=== PATIENT | male | born 1990 | race Caucasian/White ===

== ENCOUNTER 2019-08-16 12:48 | Inpatient (IN) | payer OTHER ==
[~2019-08-16] VITALS: Ht 182.9 cm; Wt 89.4 kg
[2019-08-16 12:52] VITALS: BP 161/106
[2019-08-16 13:14] LABS: ABSOLUTE BASOPHILS 0.1 thou/uL (0.0-0.2); ABSOLUTE EOSINOPHILS 0.1 thou/uL (0.0-0.7); ABSOLUTE MONOCYTES 0.8 thou/uL (0.0-1.2); ABSOLUTE NEUTROPHILS 12.9 thou/uL (1.6-8.1); BASOPHILS 0.8 %; EOSINOPHILS 0.4 %; HEMATOCRIT 44.4 % (42.0-52.0); HEMOGLOBIN 15.7 gm/dL (14.0-18.0); LYMPHOCYTES 17.6 %; MCH 31.9 pg (26.0-34.0); MCHC 35.3 g/dL (28.0-37.0); MCV 90.2 fL (80.0-100.0); MPV 7.5 fl. (7.2-11.1); NUCLEATED RBCS 0 /100WBC; PLATELET COUNT* 462 thou/uL (150-400); POLYS 76.2 %; RBC 4.93 mil/uL (4.50-6.00); RDW-CV 13.2 % (10.5-14.5); WBC 16.9 thou/uL (4.0-11.0)
[2019-08-16 13:22] LABS: CALCIUM 8.9 mg/dL (8.5-10.1); CREATININE 1.4 mg/dL (0.6-1.3)
[2019-08-16 13:34] LABS: ALBUMIN 3.6 g/dL (3.4-5.0); TOTAL BILIRUBIN 0.4 mg/dL (<0.1-1.0); TOTAL PROTEIN 7.5 g/dL (6.4-8.2)
--- NOTE | 2019-08-16 15:08 | NUR ---
MOTHER CALLED FACILITY WANTING TO KNOW STATUS OF HER SON, RETURNED PHONE CALL AND RECEIVED A VOICEMAIL, LEAVING MESSAGE TO CALL FACILITY
--- NOTE | 2019-08-16 15:15 | NUR ---
MOM CALLED AND UPDATED THE MOTHER THE STATUS OF HER SON, SHE VERBALIZED UNDERSTANDING
[2019-08-16 18:32] VITALS: BP 142/80
[2019-08-16 19:30] VITALS: BP 134/51
--- NOTE | 2019-08-16 20:17 | NUR ---
PATIENT ARRIVED FROM THE ED AT 1830. HE WAS SETTLED, IV FLUIDS STARTED AND HE WAS GIVEN A BOX LUNCH. BED IS IN THE LOW LOCKED POSITION AND CALL LIGHT WAS IN REACH. HE WAS EXPOSED TO COVID AND NEEDS TO BE SWABBED. HE IS UP AD DEBRA AND IV FLUIDS ARE GOING AND ELYTES ARE BEING REPLACED. WILL CONTINUE TO MONITOR.
[2019-08-17] VITALS: BP 123/73
[2019-08-17 04:00] VITALS: BP 121/74
[2019-08-17 05:21] LABS: ABSOLUTE BASOPHILS 0.1 thou/uL (0.0-0.2); ABSOLUTE EOSINOPHILS 0.2 thou/uL (0.0-0.7); ABSOLUTE LYMPHOCYTES 3.3 thou/uL (0.8-5.3); ABSOLUTE MONOCYTES 0.7 thou/uL (0.0-1.2); ABSOLUTE NEUTROPHILS 4.9 thou/uL (1.6-8.1); BASOPHILS 0.7 %; EOSINOPHILS 2.4 %; HEMATOCRIT 39.5 % (42.0-52.0); LYMPHOCYTES 35.5 %; MCH 31.4 pg (26.0-34.0); MCHC 34.4 g/dL (28.0-37.0); MCV 91.1 fL (80.0-100.0); MONOCYTES 8.1 %; MPV 7.6 fl. (7.2-11.1); NUCLEATED RBCS 0 /100WBC; POLYS 53.3 %; RBC 4.34 mil/uL (4.50-6.00); RDW-CV 13.2 % (10.5-14.5); WBC 9.2 thou/uL (4.0-11.0)
[2019-08-17 05:29] LABS: HEMOGLOBIN 13.6 gm/dL (14.0-18.0); PLATELET COUNT* 297 thou/uL (150-400)
[2019-08-17 05:38] LABS: ALBUMIN 2.6 g/dL (3.4-5.0); CALCIUM 7.9 mg/dL (8.5-10.1); CREATININE 1.3 mg/dL (0.6-1.3); TOTAL BILIRUBIN 0.2 mg/dL (<0.1-1.0); TOTAL PROTEIN 5.8 g/dL (6.4-8.2)
[2019-08-17 05:39] LABS: POTASSIUM 4.2 mmol/L (3.5-5.1)
--- NOTE | 2019-08-17 06:00 | NUR ---
ASSUMED CARE OF PT AT 1900. PT IS ALERT AND ORIENTED. VSS. PERRLA. NO COMPLAINTS OF PAIN. UP AD DEBRA. PT IS IN SINUS RYTHM ON THE TELEMETRY. PT IS RESTING COMFORTABLY IN BED. RESPIRATIONS ARE EVEN AND NONLABORED. WILL CONTINUE TO MONITOR PT.
[2019-08-17 08:00] VITALS: BP 148/79
--- NOTE | 2019-08-17 10:15 | NUR ---
Pt lives at home with mother support. Pt was working and independent with mobility and ADLs. SW to remain available to assist with safe dc planning and referral/resource list to be provided if needs arise.
--- NOTE | 2019-08-17 10:33 | NUR ---
ASSUMED PT CARE AT 0800, AOX4, UP AD DEBRA, O2 SAT 90'S RA. TRACING SR ON TELE. PT DENIES PAIN. IVF INFUSSING ORDER. PT ISO MAINTAIN, COVID PENDING RESULT. AM ASSESSMENT CHARTED, VSS, AM ASSESSMENT CHARTED, WILL CONTINUE TO MONITOR.
[2019-08-17 16:00] VITALS: BP 156/62
--- NOTE | 2019-08-17 17:06 | NUR ---
PT REMAINED ALERT AND ORIENTED. PT RESTING IN ROOM. FALL RISK PRECAUTIONS IN PLACE. HOURLY ROUNDING COMPLETED. WILL CONTINUE TO MONITOR.
[2019-08-17 20:15] VITALS: BP 136/88
[2019-08-17 23:18] LABS: URINE BILIRUBIN NEGATIVE (Negative); URINE BLOOD 3+ (Negative); URINE CLARITY CLEAR; URINE COLOR YELLOW; URINE GLUCOSE-RANDOM NEGATIVE (Negative); URINE KETONES NEGATIVE (Negative); URINE LEUKOCYTES-REFLEX NEGATIVE (Negative); URINE NITRITE-REFLEX NEGATIVE (Negative); URINE PROTEIN NEGATIVE (Negative); URINE UROBILINOGEN 0.2 E.U./dl (0.2-1.0)
[2019-08-17 23:26] LABS: BACTERIA-REFLEX 1-9 Few /HPF (None Seen); CASTS None Seen /LPF (None Seen); CRYSTALS None Seen /LPF (None Seen); SQUAMOUS 0-3 Few /LPF (0-3); URINE RBC 0-2 Rare /HPF (0-2); URINE WBC-REFLEX 0-5 Rare /HPF (0-5)
[2019-08-17 23:27] LABS: AMP/METHAMP Negative (Negative); BARBITURATES Negative (Negative); BENZODIAZEPINES Negative (Negative); COCAINE Negative (Negative); METHADONE Negative (Negative); OPIATES Negative (Negative); PCP Negative (Negative); THC Negative (Negative)
[2019-08-18 00:14] VITALS: BP 139/61
--- NOTE | 2019-08-18 04:25 | NUR ---
PT A&O, VSS ON RA. NO C/O PAIN. UP AD DEBRA. PT SLEEPING THROUGH THE NIGHT. IVF RUNNING ORDERED. WILL CONTINUE TO MONITOR.
[2019-08-18 05:09] VITALS: BP 151/92
[2019-08-18 07:00] LABS: ABSOLUTE BASOPHILS 0.1 thou/uL (0.0-0.2); ABSOLUTE EOSINOPHILS 0.2 thou/uL (0.0-0.7); ABSOLUTE LYMPHOCYTES 2.6 thou/uL (0.8-5.3); ABSOLUTE MONOCYTES 0.7 thou/uL (0.0-1.2); ABSOLUTE NEUTROPHILS 6.2 thou/uL (1.6-8.1); BASOPHILS 1.2 %; EOSINOPHILS 1.8 %; HEMATOCRIT 40.1 % (42.0-52.0); HEMOGLOBIN 13.8 gm/dL (14.0-18.0); LYMPHOCYTES 26.5 %; MCH 31.4 pg (26.0-34.0); MCHC 34.4 g/dL (28.0-37.0); MCV 91.3 fL (80.0-100.0); MONOCYTES 7.4 %; MPV 8.4 fl. (7.2-11.1); NUCLEATED RBCS 0 /100WBC; PLATELET COUNT* 314 thou/uL (150-400); POLYS 63.1 %; RBC 4.39 mil/uL (4.50-6.00); RDW-CV 12.9 % (10.5-14.5); WBC 9.9 thou/uL (4.0-11.0)
[2019-08-18 07:21] LABS: ALBUMIN 2.9 g/dL (3.4-5.0); CALCIUM 8.3 mg/dL (8.5-10.1); CREATININE 1.2 mg/dL (0.6-1.3); POTASSIUM 3.8 mmol/L (3.5-5.1); TOTAL BILIRUBIN 0.4 mg/dL (<0.1-1.0); TOTAL PROTEIN 6.3 g/dL (6.4-8.2)
[2019-08-18 07:50] VITALS: BP 151/44
--- NOTE | 2019-08-18 12:56 | CON ---
[address] [address] CONSULTATION Name: JACK JAMA Room: [address] ADM IN M.R.#: [id number] Admission: 08/16/19 Attend Phys: Elan Elliott Discharge: Date of : 89 Report #: [id number] THIS REPORT FOR: //name// cc: [facility]IDE[facility] - No family physician/PCP G[facility] - No family physician/PCP ~ THIS REPORT FOR: //name// CC: [facility] physician/PCP Phillip Romero DATE OF SERVICE: 08/16/2019 HISTORY OF PRESENT ILLNESS A 29-year-old male patient who was admitted with somewhat of an unusual episode. He indicated that he started having numbness in all 4 extremities. He also noticed weakness at the same time. He had some numbness on the face also. He said he was not able to walk during this episode. This lasted several hours, then he is feeling better now. In fact, feeling close to the baseline. REVIEW OF SYSTEMS: Indicate that about 1 week ago, he was pretty sick with what looks like virus infection. He said otherwise he is healthy. 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 He changed the job because of social reasons and not for medical reasons. Otherwise, he is healthy and he denies any anxiety or depression. The laboratory done here mainly shows somewhat decreased magnesium and somewhat higher than expected creatinine on him. Otherwise, he is feeling back to his baseline. A 14-point review of system was carried out and was otherwise unremarkable. PAST MEDICAL HISTORY: Negative for this kind of episode or any migraine. FAMILY HISTORY: Unremarkable. SOCIAL HISTORY: He says he smokes marijuana. PHYSICAL EXAMINATION: Indicate he is alert, responsive, able to follow simple and complex command. His speech, concentration, fund of knowledge and memory is at his baseline. Cranial nerve examination 2-12 does not show any abnormality. The patient has a symmetrical strength and sensation in all 4 extremities. There is no meningeal sign. There is no carotid bruit. Blood pressure is 134/79, respiration is 18, pulse is 73, oxygen saturation is 99. LABORATORY DATA: White count is up with 16.9, but he has no meningeal sign. He did have a CT scan of the head, C-spine and thoracic spine, does not show any abnormality, which can explain the patient's problem. IMPRESSION: Pretty unusual symptoms and he [place] [address] CONSULTATION Name: JACK JAMA Room: [address] IN [facility]#: [id number] Admission: 08/16/19 Attend Phys: Elan Elliott Discharge: Date of : 89 Report #: [id number] the etiology of that. We should initially exclude any brainstem pathology by doing an MRI. The other possibility of Guillain-[place] syndrome because he has what looks like a viral infections a week ago. The time course is not typical and the symptoms are not typical and we will evaluate him further only if he continues to have symptoms and other etiologies that are excluded. He has no contraindication for MRI. I have ordered a stat MRI in this patient and we will reevaluate the situation after that. Thank you very much for this referral. <ELECTRONICALLY SIGNED> By: Hans Mendez MD 08/18/19 [id number] Mendez MD /nt
--- NOTE | 2019-08-18 13:27 | NUR ---
FAXED [employer]PATIENT [employer] FOR [employer] (MEDICAID) THE NEGATIVE COVID-19 TEST PER CASE MANAGEMENT. [facility] [facility] [phone]; [phone]
[2019-08-18 13:46] VITALS: BP 151/44
--- NOTE | 2019-08-18 14:46 | NUR ---
ASSUMED CARE OF PATIENT AT APPROX 0730. ALERT AND ORIENTED X4. ASSESSMENT COMPLETED AND CHARTED. VSS ON ROOM AIR. NO COMPLAINTS TO THIS NURSE. PATIENT DISCHARGED AT 1432 WITH ALL PERSONAL BELONGINGS AND DISCHARGE INFORMATION.
== END 2019-08-18 14:32 | disposition home or self-care (01) | DRG 683 ==
LOC: M.ERS 12:48 → M.ORTHSURG 14:21 → M.TBA-ER 14:21 → M.ORTHSURG 18:16
PROVIDERS: Physician Assistant; ADMIT Internal Medicine
DX: N17.9 Acute kidney failure, unspecified (principal); E44.0 Moderate protein-calorie malnutrition; E87.2 Acidosis; E87.6 Hypokalemia; E83.42 Hypomagnesemia; F17.210 Nicotine dependence, cigarettes, uncomplicated; F12.90 Cannabis use, unspecified, uncomplicated; Z20.828 Contact with and (suspected) exposure to other viral communicable diseases; Z82.49 Family history of ischemic heart disease and other diseases of the circulatory system; Z68.26 Body mass index [BMI] 26.0-26.9, adult; Z79.899 Other long term (current) drug therapy